=== PATIENT | female | born 1970 | race Caucasian/White ===

== ENCOUNTER 2023-11-22 20:28 | Emergency (ER) | payer SELFPAY ==
[2023-11-22 20:36] VITALS: BP 144/94; PULSE 64; RESP 18; TEMP 36.8; O2SAT 97; BMI 28.1
--- NOTE | 2023-11-22 20:49 | PC.NURSE ---
Dressing removed from left forearm. 1 cm cut noted to anterior forearm. Blood draining from arm. Pressure dressing applied to left forearm.
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
[2023-11-22 21:17] VITALS: BP 134/89; PULSE 69; RESP 14; O2SAT 97
== END 2023-11-22 21:21 | disposition home or self-care (01) ==
LOC: ED 21:18
PROVIDERS: Emergency Provider Emergency Medicine
DX: S49.92XA Unspecified injury of left shoulder and upper arm, initial encounter (principal); W26.0XXA Contact with knife, initial encounter
CPT/HCPCS: 99281